=== PATIENT | female | born 2000 | race Caucasian/White ===

== ENCOUNTER 2024-03-26 19:55 | Emergency (ER) | payer OTHER ==
[~2024-03-26] VITALS: Ht 170.1 cm; Wt 106.6 kg
[2024-03-26] MEDS ORDERED: Motrin,Rufen800 MG PO (20:25)
[2024-03-26] MEDS ORDERED: BENZOCAINE 20% 11.9 GM GEL T STA (20:26)
[2024-03-26] MEDS ORDERED: Lidocaine Hydrochloride 15 ML UDC PO STA (20:26)
[2024-03-26] MEDS ORDERED: Acetaminophen/Hydrocodone 5 MG/325 MG TABLET PO ONE (20:30)
[2024-03-26] MEDS ORDERED: Ketorolac Tromethamine 60 MG/2 ML VIAL IM ONE (20:30)
== END 2024-03-26 20:31 | disposition home or self-care (01) ==
LOC: ED 19:55
DX: K08.89 Other specified disorders of teeth and supporting structures (principal)

== ENCOUNTER 2024-10-29 22:05 | Emergency (ER) | payer OTHER ==
[~2024-10-29] VITALS: Ht 170.2 cm; Wt 108.9 kg
[~2024-10-29 22:05] MED LIST: Motrin,Rufen800 MG PO
[2024-10-29] MEDS ORDERED: Ondansetron Hydrochloride 4 MG/2 ML VIAL IV ONE (22:50)
[2024-10-29] MEDS ORDERED: SODIUM CHLORIDE 0.9% 1,000 ML IV ONE (22:50)
[2024-10-30] MEDS ORDERED: Ondansetron4 MG PO (00:18)
== END 2024-10-30 00:39 | disposition home or self-care (01) ==
LOC: ED 22:05
DX: B34.9 Viral infection, unspecified (principal); R11.2 Nausea with vomiting, unspecified; R42 Dizziness and giddiness; R53.1 Weakness

== ENCOUNTER 2024-10-31 21:33 | Inpatient (IN) | payer OTHER ==
[~2024-10-31] VITALS: Ht 170.1 cm; Wt 101.2 kg
[~2024-10-31 21:33] MED LIST changes: +Ondansetron4 MG PO
[2024-10-31 21:38] VITALS: BP 134/85
[2024-10-31] MEDS ORDERED: Ondansetron Hydrochloride 4 MG/2 ML VIAL IV ONE (21:40)
[2024-10-31] MEDS ORDERED: SODIUM CHLORIDE 0.9% 1,000 ML IV ONE (21:40)
[2024-10-31 21:51] LABS: BASO % 0.2 % (0.0-1.0); EOS # 0.1 10*3/uL (0.0-0.4); EOS % 0.3 % (1.0-4.0); HEMATOCRIT 37.6 % (37.0-47.0); MEAN CELL VOLUME 87.6 fl (81.0-99.0); MEAN CORPUSCULAR HGB 28.7 pg (27.0-31.0); MEAN CORPUSCULAR HGB CONC 32.7 g/dl (33.0-37.0); MEAN PLATELET VOLUME 10.7 fl (9.6-12.3); MONO # 1.2 10*3/uL (0.1-1.0); MONO % 8.3 % (3.0-9.0); NEUT # 11.6 10*3/uL (2.3-7.9); NEUT % 80.2 % (47.0-73.0); PLATELET COUNT AUTOMATED 205 10*3/uL (130-400); RED BLOOD COUNT 4.29 10*6/uL (4.10-5.10); RED CELL DISTRI WIDTH 12.8 % (0-14.5); WHITE BLOOD COUNT 14.4 10*3/uL (4.8-10.8)
[2024-10-31 22:10] LABS: ALKALINE PHOSPHATASE 83 U/L (46-116); BUN 14 mg/dl (9-23); CHLORIDE 95 mmol/L (98-107); LIPASE 29 U/L (12-53); POTASSIUM 2.6 mmol/L (3.4-5.1); SGPT/ALT 30 U/L (5-49); TOTAL PROTEIN 7.7 gm/dL (6.0-8.0)
[2024-10-31] MEDS ORDERED: cefTRIAXone Sodium 1 GM/10 ML SYR IV ONE (22:55)
[2024-10-31] MEDS ORDERED: POTASSIUM CHLORIDE IN WATER 100 ML IV ONE (22:55)
[2024-10-31] MEDS ORDERED: SODIUM CHLORIDE 0.9% 1,000 ML IV SCH (22:55)
[2024-11-01] MEDS ORDERED: Magnesium Hydroxide 30 ML UDC PO PRN (00:05)
[2024-11-01] MEDS ORDERED: Acetaminophen/Hydrocodone 5 MG/325 MG TABLET PO PRN (00:05)
[2024-11-01] MEDS ORDERED: ACETAMINOPHEN 650 MG SUPP R PRN (00:05)
[2024-11-01] MEDS ORDERED: Ondansetron Hydrochloride 4 MG/2 ML VIAL IV PRN (00:05)
[2024-11-01] MEDS ORDERED: BISACODYL 5 MG TAB PO PRN (00:05)
[2024-11-01] MEDS ORDERED: MORPHINE Sulfate 2 MG/ML SYR IV PRN (00:05)
[2024-11-01] MEDS ORDERED: ACETAMINOPHEN 325 MG TAB PO PRN (00:05)
[2024-11-01] MEDS ORDERED: BISACODYL 10 MG SUPP R PRN (00:05)
[2024-11-01] MEDS ORDERED: TEMAZEPAM 15 MG CAP PO PRN (00:05)
[2024-11-01 01:00] LABS: BILIRUBIN Negative (Negative); BLOOD 3+ (Negative); CLARITY Cloudy (Clear); COLOR Dark Yellow (Yellow); GLUCOSE Negative (Negative); KETONE 1+ (Negative); LEUKO ESTERASE 3+ (Negative); NITRITE Positive (Negative); PH 5.5 (4.5-8.0); SPECIFIC GRAVITY 1.015 (1.001-1.030)
[2024-11-01] MEDS ORDERED: POTASSIUM CHLORIDE IN WATER 100 ML IV SCH (01:00)
[2024-11-01 01:09] LABS: BACTERIA 4+; RBC 41-50 rbc/hpf (0-2); WBC TNTC wbc/hpf (0-5)
[2024-11-01] MEDS ORDERED: Piperacillin Sodium/Tazobact 50 ML IV SCH (06:00)
[2024-11-01] MEDS ORDERED: Enoxaparin Sodium 40 MG/0.4 ML SYR SC SCH (10:00)
== END 2024-11-01 03:14 | disposition left against medical advice (07) | DRG 720 ==
LOC: ED 21:33 → EDHOLD 23:57 → 5E 11-01 01:52
PROVIDERS: Internal Medicine; Student in an Organized Health Care Education/Training Program; ADMIT Internal Medicine; ATTEND Internal Medicine
DX: A41.9 Sepsis, unspecified organism (principal); E44.1 Mild protein-calorie malnutrition; K56.7 Ileus, unspecified; N17.9 Acute kidney failure, unspecified; B34.9 Viral infection, unspecified; E87.8 Other disorders of electrolyte and fluid balance, not elsewhere classified